=== PATIENT | female | born 1995 | race Caucasian/White ===

== ENCOUNTER 2018-03-28 21:18 | Emergency (ER) | payer OTHER | END 2018-03-28 22:42 | disposition home or self-care (01) | LOC: FTE 21:18 | DX: N61.0 Mastitis without abscess (principal) | CPT/HCPCS: 99283; Z7502 ==

== ENCOUNTER 2019-02-15 14:05 | Emergency (ER) | payer OTHER | END 2019-02-15 14:43 | disposition home or self-care (01) | LOC: FTE 14:05 | DX: L02.415 Cutaneous abscess of right lower limb (principal) | CPT/HCPCS: 99283; Z7502 ==